=== PATIENT | female | born 1995 | race Asian ===

== ENCOUNTER 2018-09-01 02:53 | Emergency (ER) | payer MEDICAID ==
[~2018-09-01] VITALS: Ht 160 cm; Wt 48.5 kg
[2018-09-01 03:09] VITALS: Ht 160 cm; Wt 48.5 kg
[2018-09-01 05:57] VITALS: BP 95/61
== END 2018-09-01 05:57 | disposition home or self-care (01) ==
LOC: ED 02:53
DX: S61.412A Laceration without foreign body of left hand, initial encounter (principal); X58.XXXA Exposure to other specified factors, initial encounter; Y93.89 Activity, other specified; Y92.89 Other specified places as the place of occurrence of the external cause; Y99.8 Other external cause status
CPT/HCPCS: 90715; J2001

== ENCOUNTER 2018-09-03 13:57 | Emergency (ER) | payer MEDICAID ==
[~2018-09-03] VITALS: Ht 160 cm; Wt 48.1 kg
[2018-09-03 14:08] VITALS: BP 127/66; Ht 160 cm; Wt 48.1 kg
== END 2018-09-03 15:33 | disposition left against medical advice (07) ==
LOC: ED 13:57
DX: Z53.21 Procedure and treatment not carried out due to patient leaving prior to being seen by health care provider (principal)

== ENCOUNTER 2018-09-04 22:26 | Emergency (ER) | payer MEDICAID ==
[~2018-09-04] VITALS: Ht 154.9 cm; Wt 51.3 kg
[2018-09-04 22:31] VITALS: Ht 154.9 cm; Wt 51.3 kg
[2018-09-04 23:54] VITALS: BP 103/70
== END 2018-09-04 23:54 | disposition home or self-care (01) ==
LOC: ED 22:26
DX: S61.412D Laceration without foreign body of left hand, subsequent encounter (principal); X58.XXXD Exposure to other specified factors, subsequent encounter